=== PATIENT | male | born 1985 | race Caucasian/White ===

== ENCOUNTER 2018-04-27 21:07 | Emergency (ER) | payer SELFPAY ==
[2018-04-27 21:39] VITALS: BP 165/103; PULSE 65; RESP 20; TEMP 98; O2SAT 97
[2018-04-27] MEDS ORDERED: Sodium Chloride 0.9% 1,000 ML IV STA (21:57)
[2018-04-27 22:07] LABS: BASO # 0.1 K/uL (0.0-0.2); BASO % 0.6 % (0.0-2.0); EOS # 0.5 K/uL (0.0-0.7); EOS % 4.3 % (0.0-4.0); HEMOGLOBIN 15.7 g/dL (12.0-18.0); LYMPH # 2.9 K/uL (1.0-4.3); MEAN CELL VOLUME 79.3 fL (80.0-94.0); MEAN CORPUSCULAR HEMOGLOBIN 26.1 pg (27.0-31.0); MEAN CORPUSCULAR HGB CONC 32.9 g/dL (33.0-37.0); MONO # 0.7 K/uL (0.0-0.8); NEUT # 7.8 K/uL (1.8-7.0); NEUT % 65.1 % (50.0-75.0); NRBC % 0.1 % (0.0-2.0); RBC 6.02 Mil/uL (4.40-5.90)
[2018-04-27 22:26] LABS: ALB/GLOB RATIO 1.3 (1.0-2.1); ALBUMIN 5.1 g/dL (3.5-5.0); ALT/SGPT 51 U/L (21-72); AST/SGOT 38 U/L (17-59); BLOOD UREA NITROGEN 15 mg/dL (9-20); CALCIUM 9.8 mg/dl (8.6-10.4); GFR NON-AFRICAN AMERICAN > 60; LIPASE 55 U/L (23-300)
--- NOTE | 2018-04-27 22:26 | C.PDOC ---
History Of Present Illness 33 y/o male presents to ed with sudden onset right flank pain that radiates to groin about 1 hour before arrival, associated with nausea and vomiting. no fevr. no urinary symptoms. <Ruthie Apple - Last Filed: 04/27/18 22:52> History Per: Patient History/Exam Limitations: no limitations Onset/Duration Of Symptoms: Hrs (1) Current Symptoms Are (Timing): Still Present Severity: Moderate Quality Of Discomfort: Unable To Describe Associated Symptoms: Nausea, Vomiting. denies: Fever, Chills <Ruthie Apple - Last Filed: 04/27/18 22:52> <Rere Antonio - Last Filed: 04/28/18 01:06> Time Seen by Provider: 04/27/18 21:51 Chief Complaint (Nursing): Male Genitourinary Past Medical History Reviewed: Historical Data, Nursing Documentation, Vital Signs Vital Signs: Last Vital Signs Temp 98.0 F 04/27/18 21:36 Pulse 65 04/27/18 21:36 Resp 04/27/18 21:36 BP 165/103 H 04/27/18 21:36 Pulse Ox 97 04/27/18 21:36 - Medical History PMH: No Chronic Diseases Surgical History: No Surg Hx Family History: States: Unknown Family Hx - Social History Hx Tobacco Use: No Hx Alcohol Use: No Hx Substance Use: No - Immunization History Hx Tetanus Toxoid Vaccination: No Hx Influenza Vaccination: No Hx Pneumococcal Vaccination: No <Ruthie Apple - Last Filed: 04/27/18 22:52> Vital Signs: Last Vital Signs Temp 98.0 F 04/27/18 21:36 Pulse 65 04/27/18 21:36 Resp 20 04/27/18 21:36 BP 165/103 H 04/27/18 21:36 Pulse Ox 97 04/27/18 22:52 <Rere Antonio - Last Filed: 04/28/18 01:06> Review Of Systems Constitutional: Negative for: Fever, Chills Cardiovascular: Negative for: Chest Pain Respiratory: Negative for: Cough, Shortness of Breath Gastrointestinal: Positive for: Nausea, Vomiting, Abdominal Pain. Negative for: Diarrhea Skin: Negative for: Rash Neurological: Negative for: Weakness, Numbness <Ruthie Apple - Last Filed: 04/27/18 22:52> Physical Exam - Physical Exam Appears: Non-toxic, In Acute Distress (painful) Skin: Warm, Dry Head: Atraumatic, Normacephalic Eye(s): bilateral: Normal Inspection Nose: No Discharge Oral Mucosa: Dry Neck: Supple Chest: No Tenderness Cardiovascular: Rhythm Regular, No Murmur Respiratory: No Decreased Breath Sounds, No Rales, No Rhonchi, No Wheezing Gastrointestinal/Abdominal: Bowel Sounds, Soft, Tenderness (right flank), No Guarding, No Rebound Back: No CVA Tenderness Neurological/Psych: Oriented x3, Normal Speech, Normal Cognition <ZechariahRuthie - Last Filed: 04/27/18 22:52> ED Course And Treatment - Laboratory Results Result Diagrams: 04/27/18 22:04 04/27/18 22:04 O2 Sat by Pulse Oximetry: 97 <ZechariahRuthie - Last Filed: 04/27/18 22:52> - Laboratory Results Result Diagrams: 04/27/18 22:04 04/27/18 22:04 Lab Results: Total Bilirubin 0.7 mg/dL (0.2-1.3) 04/27/18 22:04 AST 38 U/L (17-59) 04/27/18 22:04 ALT 51 U/L (21-72) 04/27/18 22:04 Alkaline Phosphatase 102 U/L (38-126) 04/27/18 22:04 Total Protein 8.9 g/dL (6.3-8.3) H 04/27/18 22:04 Albumin 5.1 g/dL (3.5-5.0) H 04/27/18 22:04 Globulin 3.8 gm/dL (2.2-3.9) 04/27/18 22:04 Albumin/Globulin Ratio 1.3 (1.0-2.1) 04/27/18 22:04 Lipase 55 U/L (23-300) 04/27/18 22:04 - CT Scan/US CT abd/pelvis Other Rad Studies (CT/US): Read By Radiologist, Radiology Report Reviewed CT/US Interpretation: EXAM: CT Abdomen with IV contrast. CLINICAL HISTORY: Right abd pain. TECHNIQUE: Axial computed tomography images of the abdomen and pelvis with intravenous contrast. 0.00 mGy-cm. CONTRAST: With; Type and dosage. COMPARISON: None provided. FINDINGS: LUNG BASES: Mild linear atelectasis or scarring in the lung bases. LIVER: Mild fatty infiltration of liver. GALLBLADDER AND BILE DUCTS: The gallbladder appears within normal limits. No radioopaque gallstones are seen. No biliary ductal dilatation is evident. PANCREAS: Unremarkable. SPLEEN: Unremarkable. ADRENAL GLANDS: Unremarkable. KIDNEYS, URETERS, AND BLADDER: Mild right hydronephrosis. There is a 2 mm obstructing calculus on series 2, image 84 within the distal right ureter near the right ureterovesicular junction. STOMACH AND BOWEL: There is mild constipation in the colon. No bowel obstruction. APPENDIX: Normal appen patricia is present in the right lower quadrant. PERITONEUM: No free fluid. No free air. LYMPH NODES: No lymphadenopathy is evident. VASCULATURE: No evidence of abdominal aortic aneurysm. BONES: There are minimal degenerative spine changes. IMPRESSION: 1. Mild right hydronephrosis. There is a 2 mm obstructing calculus on series 2, image 84 within the distal right ureter near the right ureterovesicular junction. 2. Additional and incidental findings as described. . Electronically signed on Apr 27, 2018 11:49:59 PM EST by: Paul Kendrick M.D., REBECCA Certified By [facility] & [facility]. Fellowship Trained MRI and CT Specialist. <Rere Antonio - Last Filed: 04/28/18 01:06> Medical Decision Making Medical Decision Making: sudden onset flank pain wth vomiiting, eval for kidney stone 2230 pt much more comfortable after toradol, resting comfortably, awaits ct scan. <Ruthie Apple - Last Filed: 04/27/18 22:52> Disposition - Disposition Disposition Time: 22:52 <Ruthie Apple - Last Filed: 04/27/18 22:52> Counseled Patient/Family Regarding: Studies Performed, Diagnosis - POA Present On Arrival: None <Rere Antonio - Last Filed: 04/28/18 01:06> - Disposition Condition: IMPROVED Additional Instructions: LYN MALDONADO, thank you for letting us take care of you today. Your provider was Rere Antonio MD and you were treated for STOMACH PAINS. The emergency m edical care you received today was directed at your acute symptoms. If you were prescribed any medication, please fill it and take as directed. It may take several days for your symptoms to resolve. Return to the Emergency Department if your symptoms worsen, do not improve, or if you have any other problems. Please contact your doctor in 1-2 days for a follow up appointment. Bring any paperwork you were given at discharge with you along with any medications you are taking to your follow up visit. Our treatment cannot replace ongoing medical care by a primary care provider outside of the emergency department. Thank you for allowing the [facility] team to be part of your care today. If you had an X-Ray or CT scan: A Radiologist will review the ED reading if any change in treatment is needed we will contact you. If you had a blood, urine, or wound culture: It will take several days for the results, if any change in treatment is needed we will contact you. If you had an STI test: It will take 48 hours for the results. Please call after 1 week if you have not heard back. Prescriptions: Ketorolac Tromethamine [Toradol] 10 mg PO Q6H PRN #15 tab PRN Reason: Pain, Moderate (4-7) Tamsulosin [Flomax] 0.4 mg PO DAILY #14 cap Instructions: Kidney Stones (DC) Forms: [facility] (Arabic) - Clinical Impression Clinical Impression: Acute flank pain, Kidney stone on right side Physician Patient Turnover Patient Signed Over To: Rere Antonio Handoff Comments: f/u ct scan, dispo accordingly, needs outpt eval for elevated glucose <Ruthie Apple - Last Filed: 04/27/18 22:52>
--- NOTE | 2018-04-28 08:52 | CT ---
CT abdomen and pelvis HISTORY: Right flank pain. COMPARISON: None available. TECHNIQUE: Multiple contiguous axial images were performed through the abdomen and pelvis without the use of intravenous contrast. Subsequently, sagittal and coronal reformatted images were obtained. Findings: Scattered atelectasis at the lung bases. No pleural or pericardial effusion. Fatty infiltration of the liver. 5 millimeter calculus seen at the neck of the gallbladder and series 3, image 61. Prominent spleen. Adrenal glands are preserved. Pancreas is preserved. Upper abdominal bowel is preserved. Right kidney: Mild right hydroureteronephrosis with a 3 millimeter calculus in the distal right ureter. Mild right perinephric fat stranding. Left Kidney: No calculi or hydronephrosis. Urinary bladder is preserved. Prominent prostate with calcification. Few scattered diverticuli. Fecal retention in colon. Appendix is within normal limits. Few shotty para-aortic and inguinal nodes. Degenerative changes in the spine. Impression: Mild right hydroureteronephrosis with a 3 millimeter calculus in the distal right ureter. Mild right perinephric fat stranding. 5 millimeter calculus seen at the neck of the gallbladder. Correlation with right upper quadrant ultrasound may be helpful if clinically indicated. Fatty infiltration of the liver. A preliminary report was generated at 11:49 p.m. on 04/27/[address] Paul Kendrick from [facility]
== END 2018-04-28 00:26 | disposition home or self-care (01) ==
LOC: C.ER 21:07
DX: N13.2 Hydronephrosis with renal and ureteral calculous obstruction (principal)
CPT/HCPCS: 74176; 80053; 83690; 85025; 96374; 96375; 99283; J1885; J2405; J7030